=== PATIENT | male | born 1985 | race Caucasian/White ===

== ENCOUNTER 2017-03-09 15:29 | Emergency (ER) ==
[2017-03-09 15:29] VITALS: BMI 32.5
[2017-03-09 15:34] VITALS: BP 141/91; TEMP 98.5
--- NOTE | 2017-03-09 15:54 | ED.PDOC ---
General ED Provider: Dr. JENNIFER BAUMAN Chief Complaint: Tooth Problem Stated Complaint: Hurting on the left upper teeth, some swelling in the gum,. this is 5 th visit for the same reason Time Seen by Physician: 15:51 Mode of Arrival: Walk-In Information Source: Patient Nursing and Triage Documentation Reviewed and Agree: Yes EENT Complaint Exam - Dental/Oral Complaint/Exam Mechanism of Injury: No known trauma Symptoms Are: Still present Timing: Constant Initial Severity: Moderate Current Severity: Moderate Character: Reports: Aching Aggravating: Reports: Cold, Chewing Alleviating: Reports: None Associated Signs and Symptoms: Reports: Swelling, Foul odor Related History: Reports: Similar episode Cardiac Risk Factors: Reports: None Dental/Oral Surgical History: Reports: None Tooth Findings: Present: Percussion tenderness, Gross decay, Gross caries Teeth Picture: 1 - caries, broken Differential Diagnoses: Dental Abcess, Dental Caries Review of Systems - Review Of Systems Constitutional: Reports: No symptoms Eyes: Reports: No symptoms Ears, Nose, Mouth, Throat: Reports: No symptoms Respiratory: Reports: No symptoms Cardiac: Reports: No symptoms GI: Reports: No symptoms : Reports: No symptoms Musculoskeletal: Reports: No symptoms Skin: Reports: No symptoms Neurological: Reports: No symptoms Endocrine: Reports: No symptoms Hematologic/Lymphatic: Reports: No symptoms All Other Systems: Reviewed and Negative Past Medical History - Past Medical History Previously Healthy: Yes Endocrine: Reports: None Cardiovascular: Reports: Hypertension Respiratory: Reports: None Hematological: Reports: None Gastrointestinal: Reports: GERD Genitourinary: Reports: None Neuro/Psych: Reports: Migraine, Anxiety, Depression Musculoskeletal: Reports: None Cancer: Reports: None - Surgical History General Surgical History: Reports: Unknown - Family History Family History: Reports: Unknown - Social History Smoking Status: Current every day smoker, Light tobacco smoker Smoking Cessation Counseling Time: > 3 min - 10 min Hx Substance Use: No Alcohol Screening: Occasionally - Immunizations Tetanus Shot up to Date: Yes Physical Exam - Physical Exam Appearance: Well-appearing, No pain distress, Well-nourished Eyes: VALORIE, EOMI, Conjunctiva clear ENT: Ears normal, Nose normal, Oropharynx normal Respiratory: Airway patent, Breath sounds clear, Breath sounds equal, Respirations nonlabored Cardiovascular: RRR, Pulses normal, No rub, No murmur GI/: Soft, Nontender, No masses, Bowel sounds normal, No Organomegaly Musculoskeletal: Normal strength, ROM intact, No edema, No calf tenderness Skin: Warm, Dry, Normal color Neurological: Sensation intact, Motor intact, Reflexes intact, Cranial nerves intact, Alert, Oriented Psychiatric: Affect appropriate, Mood appropriate Critical Care Note - Critical Care Note Total Time (mins): 0 Course - Course Orders, Labs, Meds: Orders Category Date Time Status Ketorolac Tromethamine [Toradol] MEDS 03/09/17 15:51 Stat 60 mg IM ONCE STA Vital Signs: Temp Pulse Resp BP Pulse Ox 03/09/17 15:29 98.5 F 77 20 141/91 H 98 Departure - Departure Time of Disposition: 15:56 Disposition: HOME SELF-CARE Discharge Problem: Toothache Instructions: Dental Abscess (ED) Condition: Stable Pt referred to PMD for follow-up: Yes (dentist) Additional Instructions: Needs f/u with dentist Tylenol prn F/u at [facility] Prescriptions: Amoxicillin/Potassium Clav [Augmentin 500-125 mg Tab] 1 tab PO Q12HR #20 tablet Hydrocodone/Acetaminophen [[place] 5-325 Tablet] 1 tab PO TID PRN #6 tablet PRN Reason: PAIN Allergies/Adverse Reactions: Allergies tramadol Adverse Reaction (Verified 03/09/17 15:36) BREAK OUT Home Medications: Ambulatory Orders Amoxicillin/Potassium Clav [Augmentin 500-125 mg Tab] 1 tab PO Q12HR #20 tablet 03/09/17 Hydrocodone/Acetaminophen [[place] 5-325 Tablet] 1 tab PO TID PRN #6 tablet Disposition Discussed With: Patient
[2017-03-09] MEDS: TORADOL IM STA (15:57)
== END 2017-03-09 16:16 | disposition home or self-care (01) ==
LOC: ED 15:29
DX: K02.9 Dental caries, unspecified (principal); F17.200 Nicotine dependence, unspecified, uncomplicated
CPT/HCPCS: 96372; 99282

== ENCOUNTER 2019-03-10 06:48 | Emergency (ER) | payer OTHER ==
[2019-03-10 06:55] VITALS: BP 142/94; TEMP 98.5; BMI 33.0
--- NOTE | 2019-03-10 07:13 | ED.PDOC ---
General ED Provider: Dr. NAOMIE ADKINS Chief Complaint: Sore Throat Stated Complaint: Severe sore throat. Onset 1 week. Feels painful-like swallowing glass/sharp blade. Time Seen by Physician: 07:08 Mode of Arrival: Walk-In Information Source: Patient Exam Limitations: No limitations Nursing and Triage Documentation Reviewed and Agree: Yes Does patient meet sepsis criteria?: No System Inflammatory Response Syndrome: Not Applicable Sepsis Protocol: For patient's 13 years and over: Temp is 96.8 and below OR 101 and greater Pulse >90 BPM Resp >20/minute Acutely Altered Mental Status Are patient's symptoms suggestive of a new infection, such as: -Pneumonia -Skin, Soft Tissue -Endocarditis -UTI -Bone, Joint Infection -Implantable Device -Acute Abdominal Infection -Wound Infection -Meningitis -Blood Stream Catheter Infection -Unknown EENT Complaint Exam - Throat Complaint/Exam Onset/Duration: 5 days Symptoms Are: Still present Timimg: Constant Initial Severity: Moderate Current Severity: Moderate Aggravating: Reports: Eating (and swallowing) Alleviating: Reports: None Associated Signs and Symptoms: Denies: Fever, Dysphagia, Drooling, Foreign body sensation, Chills, Cough, Wheezing, Hoarseness, Sinus discomfort, Nasal congestion, Difficulty breathing, Lethargy, Irritability, Decreased activity, Vomiting, Diarrhea, Decreased hearing, Ear drainage Related History: Denies: Similar Episode Uvula Midline: Yes Estephania-tonsillar Fluctuence: No Scarlatinaform Rash Present: No Lesions: Absent: Buccal Mucosa, Pharynx Exanthem: Absent: Buccal Mucosa, Pharynx Vesicles: Absent: Buccal Mucosa, Pharynx Stridor Present: No Sinus Tenderness Present: No Tonsillar Hypertrophy Present: No Tonsillar Exudate Present: No Estephania-tonsillar Swelling Present: No Adenopathy Present: Yes Splenomegaly Present: No Differential Diagnoses: Pharyngitis Review of Systems - Review Of Systems Constitutional: Reports: No symptoms Eyes: Reports: No symptoms Ears, Nose, Mouth, Throat: Reports: No symptoms Respiratory: Reports: No symptoms Cardiac: Reports: No symptoms GI: Reports: No symptoms : Reports: No symptoms Musculoskeletal: Reports: No symptoms Skin: Reports: No symptoms Neurological: Reports: No symptoms Endocrine: Reports: No symptoms Hematologic/Lymphatic: Reports: No symptoms All Other Systems: Reviewed and Negative Past Medical History - Past Medical History Previously Healthy: Yes Endocrine: Reports: None Cardiovascular: Reports: Hypertension Respiratory: Reports: None Hematological: Reports: None Gastrointestinal: Reports: GERD Genitourinary: Reports: None Neuro/Psych: Reports: Migraine, Anxiety, Depression Musculoskeletal: Reports: None Cancer: Reports: None - Surgical History General Surgical History: Reports: Unknown - Family History Family History: Reports: Unknown - Social History Smoking Status: Current every day smoker, Light tobacco smoker Hx Substance Use: No Alcohol Screening: None - Immunizations Tetanus Shot up to Date: Yes Physical Exam - Physical Exam Appearance: Well-appearing Ill-appearing: Mild Pain Distress: Mild Eyes: VALORIE, EOMI, Conjunctiva clear ENT: Erythema Neck: Supple Respiratory: Airway patent, Breath sounds clear, Breath sounds equal, Respirations nonlabored Cardiovascular: RRR, Pulses normal, No rub, No murmur GI/: Soft, Nontender, No masses, Bowel sounds normal, No Organomegaly Musculoskeletal: Normal strength, ROM intact, No edema, No calf tenderness Skin: Warm, Dry, Normal color Neurological: Sensation intact, Motor intact, Reflexes intact, Cranial nerves intact, Alert, Oriented Psychiatric: Affect appropriate, Mood appropriate Critical Care Note - Critical Care Note Total Time (mins): 0 Course - Course Vital Signs: Temp Pulse Resp BP Pulse Ox 03/10/19 06:48 98.5 F 100 H 18 142/94 H 97 Departure - Departure Time of Disposition: 07:32 Disposition: HOME SELF-CARE Discharge Problem: Acute pharyngitis Instructions: Pharyngitis (ED) Condition: Good Pt referred to PMD for follow-up: Yes IPMP verified?: No Additional Instructions: RINSE MOUTH WITH WARM SALT WATER SEVERAL TIMES A DAY TAKE ANTIBIOTIC DIRECTED AND MONITOR FOR POSSIBLE ADVERSE EFFECTS SEEK APPOINTMENT WITH PCP FOR FOLLOW UP APT IN 5-7 DAYS RETURN TO ER IF WORSENS TAKE ANALGESICS NEEDED(TYLENOL OR IBUPROFEN) Allergies/Adverse Reactions: Allergies tramadol Adverse Reaction (Verified 03/10/19 06:55) BREAK OUT Home Medications: Ambulatory Orders Azithromycin [Zithromax] 250 mg PO DAILY #6 tablet 03/10/19 Disposition Discussed With: Patient
== END 2019-03-10 07:44 | disposition home or self-care (01) ==
LOC: ED 06:48
DX: J02.9 Acute pharyngitis, unspecified (principal); F17.210 Nicotine dependence, cigarettes, uncomplicated
CPT/HCPCS: 87651; 99282

== ENCOUNTER 2024-11-28 19:15 | Observation (INO) ==
--- NOTE | 2024-11-28 19:34 | ED.PDOC ---
General ED Provider: Dr. MADDI ROJAS MD Chief Complaint: Shortness of Air Stated Complaint: Patient is a 39-year-old male with past medical history of asthma, COPD, obesity who presents with complaint of shortness of breath. The patient states that he has been having flulike symptoms for a week and a half, was seen in the ER couple of days ago and was sent home with symptomatic management after being diagnosed with flu. Patient started feeling worse, saw his PCP yesterday and was treated with steroids, and was told to go to the ER if symptoms worsen. Patient states that since yesterday evening he cannot stand and breathe together and it has been progressively getting worse. Patient denies any fevers, runny nose, sore throat. Has chest pain with coughing. Denies any chills, palpitations, nausea, vomiting or abdominal pain. Patient has diarrhea and it is watery. Patient denies any urinary symptoms. Patient is a smoker and has not been smoking for the past week and a half since he started having the symptoms. Time Seen by Provider: 11/28/24 19:31 Mode of Arrival: Walk-In Information Source: Patient Exam Limitations: No limitations Primary Care Provider: KAITLIN LAMBERT Nursing and Triage Documentation Reviewed and Agree: Yes What is Opioid Naive?: *Opioid Naive implies the patient is not already taking opioids or not chronically receiving opioids on a daily basis. *PRN dosing is not "usually" associated with tolerance. *Patients are at higher risk of over-sedation and aspiration. What is Opioid Tolerant?: *Opioid Tolerance implies less than the expected response to an opioid. *Acquired tolerance is defined by the patient taking 60mg of oral morphine daily (or equianalgesic dose of another opioid) for 1 week or more. *Often associated with chronic pain. *May take more than usual dose to achieve desired pain control. Review of Systems Review Of Systems Constitutional: Denies Chills or Fever Eyes: Reports No symptoms Ears, Nose, Mouth, Throat: Reports No symptoms Respiratory: Reports Cough, Shortness of Breath and Wheezing Cardiac: Reports Chest pain (with coughing) GI: Reports No symptoms : Reports No symptoms Musculoskeletal: Reports No symptoms Skin: Reports No symptoms Neurological: Reports No symptoms Endocrine: Reports No symptoms Hematologic/Lymphatic: Reports No symptoms All Other Systems: Reviewed and Negative [facility] Medical History Hypertension I10 - Essential (primary) hypertension (ICD-10) Panic attacks F41.0 - Panic disorder [episodic paroxysmal anxiety] (ICD-10) ADHD (attention deficit hyperactivity disorder) F90.9 - Attention-deficit hyperactivity disorder, unspecified type (ICD-10) Family History Mother Cancer Ovarian FATHER Cancer Colon Social History (Updated 11/29/24 @ 02:04 by CARLOS MANUEL OSULLIVAN RN) Smoking and tobacco status: Current every day smoker Tobacco type: cigarettes Alcohol intake: unknown Substance use type: does not use Agree to transfusion: Yes Adopted: No Caregiver/support person: No Foster care: No Household members: spouse and children Housing: house Marital status: M Lives independently: Yes Daycare: no daycare Number of children: 1 Highest education level completed: 11th grade Financial difficulty paying for basics: not very hard service: No retirement: No Current occupational status: employed Seatbelt use: always Current diet type/program: regular Physical Exam Physical Exam Appearance: Reports Ill-appearing Ill-appearing: Mild Pain Distress: Mild Respiratory: Reports Breath sounds diminished, Wheezes and Other Cardiovascular: Reports RRR, Pulses normal and No murmur GI/: Reports Soft and Nontender Musculoskeletal: Reports Normal strength and No edema Skin: Reports Warm and Normal color Neurological: Reports Motor intact, Alert and Oriented Psychiatric: Reports Affect appropriate Interpretation EKG Interpretation EKG Interpretation By: ED Physician Time of EKG #1: 19:59 Rate: Tachy Rhythm: Sinus Ectopy: None ST Segment: Other (Nonspecific ST-T changes in the inferior leads. Q waves in inferior leads.) Interpretation: Sinus tachycardia, heart rate of 101 bpm. Normal intervals. No STEMI. Radiology Interpretation Radiology Interpretation By: Radiologist (Looked at the right films, suggestive of pneumonia. Radiology read pending) Radiology Results: Positive Exam Interpreted: CXR ( Shortness of breath. COMPARISON: Chest radiograph 03/02/2024. FINDINGS: Normal heart size. Ground-glass opacities in the lower lungs bilaterally. No visible pleural effusion or pneumothorax. No acute osseous abnormality. IMPRESSION: Bibasilar opacities concerning for pneumonia or) Re-Evaluation Re-Evaluation Time of Re-Evaluation: 23:00 Status: Improved (Mild improvement. Patient was administered IV steroids, antibiotics and Pulmicort.) Vital Signs Stable: Yes Re-Evaluation Time of Re-Evaluation: 00:01 Status: Improved (Patient sleeping, saturations are 96% on 2 L, heart rate is 94, respiratory rate is 21. Patient is sleeping. Will admit to the hospitalist.) Vital Signs Stable: Yes Critical Care Note Critical Care Note Total Critical Care Time (mins): 40 Course Course 11/29/24 05:25 11/29/24 05:25 Orders, Labs, Meds: Lab Review 11/28/24 11/28/24 11/28/24 19:59 20:13 21:30 WBC 13.04 H RBC 4.77 Hgb 14.2 Hct 41.8 L MCV 87.6 MCH 29.8 MCHC 34.0 RDW Coeff of Portia 12.9 Plt Count 210 Immature Gran % (Auto) 0.6 Neut % (Auto) 73.0 Lymph % (Auto) 16.9 Castro % (Auto) 8.7 Eos % (Auto) 0.6 Baso % (Auto) 0.2 Neut # (Auto) 9.5 H Lymph # (Auto) 2.2 Castro # (Auto) 1.1 Eos # (Auto) 0.1 Baso # (Auto) 0.0 Immature Gran # (Auto) 0.1 Puncture Site Lb Base Excess 3.3 H O2 Saturation 94.0 ABG pH 7.50 H ABG pCO2 34.0 L ABG pO2 64.0 L ABG HCO3 26.5 ABG Total CO2 27.5 H Anshu Test + Hemoglobin 0.7 Oxyhemoglobin 92.3 L Carboxyhemoglobin 2.2 H Total Hemoglobin 16.1 O2 Delivery Device Cannula Oxygen Liter Flow 2.00 FiO2 % 28.0 Sodium 139.8 Potassium 3.32 L Chloride 105.3 Carbon Dioxide 24.5 Anion Gap 13.32 BUN 14.9 Creatinine 0.79 Estimated GFR (MDRD) 109.00 BUN/Creatinine Ratio 18.86 Glucose 121.0 H Lactic Acid 1.21 Calcium 8.77 Total Bilirubin 0.69 AST 40.3 ALT 35.4 Alkaline Phosphatase 124.3 Troponin I < 0.012 NT-Pro-B Natriuret Pep < 20 Total Protein 7.63 Albumin 3.73 Globulin 3.90 Albumin/Globulin Ratio 0.95 D-Dimer 599.46 H SARS CoV-2 RNA Rapid BROOK Negative Orders Category Date Time Status ADMIT PATIENT INPATIENT .TO [facility] (MONITORED BED) ADMISSION 11/29/24 00:28 Active ABG DRAW REQUEST Stat CARDIO 11/28/24 19:32 Completed EKG-(ED ONLY) Stat CARDIO 11/28/24 19:32 Completed NEBULIZER TREATMENT Routine CARDIO 11/29/24 00:29 Active NEBULIZER TREATMENT Stat CARDIO 11/28/24 21:22 Completed NPO REMINDER: IMAGING ONCE CARE 11/28/24 21:22 Completed TELEMETRY MONITORING TELE CARE 11/29/24 00:28 Active ABG COOX Stat LAB 11/28/24 20:13 Completed BLOOD CULTURE Stat LAB 11/28/24 21:38 Received CBC W/ AUTO DIFF Q3D LAB 11/30/24 06:00 Ordered CBC W/ AUTO DIFF Stat LAB 11/28/24 19:59 Completed CBC W/ AUTO DIFF Stat LAB 11/29/24 05:25 Completed CMP [COMPREHENSIVE METABOLIC PANEL] Q3D LAB 11/30/24 06:00 Ordered CMP [COMPREHENSIVE METABOLIC PANEL] Stat LAB 11/28/24 19:59 Completed CMP [COMPREHENSIVE METABOLIC PANEL] Stat LAB 11/29/24 05:25 Completed COVID [SARS COV-2 RNA RAPID BROOK] Stat LAB 11/28/24 21:30 Completed D-DIMER Stat LAB 11/28/24 19:59 Completed LACTIC ACID Stat LAB 11/28/24 19:59 Completed MANUAL DIFFERENTIAL Stat LAB 11/29/24 05:25 Completed PROBNP ED [NT-PROBNP(ED)] Stat LAB 11/28/24 19:59 Completed TROPONIN I Stat LAB 11/28/24 19:59 Completed Azithromycin Inj [Zithromax] 500 mg Meds 11/28/24 21:20 Discontinued 0.9 % Sodium Chloride [Sodium Chloride] 250 ml IV ONCE Budesonide [Pulmicort 0.5 mg/2 ml] Meds 11/28/24 21:20 Discontinued 0.5 mg NEB ONCE STA Ceftriaxone/D5w 1 gm Premix [Rocephin 1 gm/50 ml D5w] Meds 11/28/24 21:20 Discontinued 1 gm in 50 ml IV ONCE Iohexol [Omnipaque 350 mg/ml 100Ml] Meds 11/28/24 21:48 Discontinued 100 ml IVP ONCE ONE Ipratropium/Albuterol Neb [Duoneb] Meds 11/29/24 02:00 Active 3 ml NEB RTQ4H Ipratropium/Albuterol Neb [Duoneb] Meds 11/28/24 19:32 Discontinued 6 ml NEB ONCE STA Methylprednisolone Sod Succ/Pf [Solu-Medrol 125 mg] Meds 11/28/24 21:41 Discontinued 125 mg .ROUTE .STK-MED ONE Methylprednisolone Sod Succ/Pf [Solu-Medrol 125 mg] 125 Meds 11/28/24 21:35 Discontinued mg 0.9 % Sodium Chloride [Sodium Chloride] 50 ml IV ONCE CHEST, 1V AP ONLY Stat RADS 11/28/24 19:32 Completed CTA CHEST PE PROTOCOL Stat RADS 11/28/24 21:20 Completed Medications Generic Name Dose Route Start Last Admin Trade Name Freq PRN Reason Stop Dose Admin Albuterol/Ipratropium 3 ml 11/29/24 02:00 11/29/24 05:05 Ipratropium/Albuterol Vial.Neb NEB 3 ml RTQ4H CIRO Administration Sodium Chloride 1 syr 11/29/24 13:00 0.9% Sodium Chloride 10 Ml Disp.Syrin IVF Q8HR CIRO Sodium Chloride 1 syr 11/29/24 05:38 11/29/24 05:48 0.9% Sodium Chloride 10 Ml Disp.Syrin IVF 1 syr PRN PRN Administration FLUSHING Discontinued Medications Generic Name Dose Route Start Last Admin Trade Name Freq PRN Reason Stop Dose Admin Albuterol/Ipratropium 6 ml 11/28/24 19:32 11/28/24 20:29 Ipratropium/Albuterol Vial.Neb NEB 11/28/24 19:33 6 ml ONCE STA Administration Budesonide 0.5 mg 11/28/24 21:20 11/28/24 21:37 Budesonide 0.5 Mg/2 Ml Vial.Neb NEB 11/28/24 21:21 0.5 mg ONCE STA Administration CEFTRIAXONE/D5W 1 GM PREMIX 1 gm in 50 mls @ 100 mls/hr 11/28/24 21:20 11/28/24 21:58 Rocephin 1 Gm/50 Ml D5w IV 11/28/24 21:49 100 mls/hr ONCE ONE Administration Azithromycin 500 mg/ Sodium 250 mls @ 250 mls/hr 11/28/24 21:20 11/28/24 23:04 Chloride IV 11/28/24 22:19 250 mls/hr ONCE ONE Administration Methylprednisolone Sodium 52 mls @ 100 mls/hr 11/28/24 21:35 11/28/24 22:34 Succinate 125 mg/ Sodium IV 11/28/24 22:07 100 mls/hr Chloride ONCE ONE Administration Iohexol 100 ml 11/28/24 21:48 11/28/24 21:48 Iohexol 350 Mg/Ml 100ml IVP 11/28/24 21:49 100 ml ONCE ONE Administration Vital Signs: Temp Pulse Resp BP Pulse Ox O2 Flow Rate 11/28/24 19:47 2 11/28/24 19:22 97.8 F 100 28 H 162/81 H 93 L Differential diagnosis include but not limited to flu, COVID, RSV, COPD exacerbation, CHF exacerbation, asthma exacerbation, pneumonia, pneumothorax, pleurisy. ER course: Patient is a 39-year-old male who presented with cough, shortness of breath going on for a week and a half and progressively worse over the past 36 hours. On examination patient was tachypneic and had diffuse wheezing and diminished breath sounds. Patient was given DuoNebs x 2, Pulmicort, Solu-Medrol with mild improvement of symptoms. Patient's D-dimer was elevated and CTA for PE was done which was of poor quality as patient could not hold his breath for the scan. Patient was started on ceftriaxone and azithromycin. Will admit the patient to Dr. Nikko Schroeder, discussed with Jose J Taylor NP for the hospitalist. Will put the admission orders in. Discharge Plan Discharge Patient Disposition: ADMITTED INPATIENT Discharge Problem: Hypoxemia Pneumonia Qualifiers: Pneumonia type: due to influenza A virus Qualified Code(s): J10.00 - Influenza due to other identified influenza virus with unspecified type of pneumonia Dyspnea Qualifiers: Dyspnea type: shortness of breath Qualified Code(s): R06.02 - Shortness of breath Did you review [place] [employer]APH[employer]OR for ALL controlled substances?: Not Applicable ED Provider: MADDI ROJAS Condition: Stable
[2024-11-28 20:05] LABS: BASOPHILS % (AUTO) 0.2 % (0.0-3.0); EOSINOPHILS # (AUTO) 0.1 K/ul (0.0-0.7); EOSINOPHILS % (AUTO) 0.6 % (0.0-7.0); HEMATOCRIT 41.8 % (42.0-52.0); HEMOGLOBIN 14.2 g/dl (14.0-18.0); IMMATURE GRANULOCYTE # (AUTO) 0.1 (0.0-1.0); IMMATURE GRANULOCYTE % (AUTO) 0.6 % (0.0-5.0); LYMPHOCYTES # (AUTO) 2.2 K/uL (0.60-3.4); LYMPHOCYTES % (AUTO) 16.9 (10.0-50.0); MEAN CORPUSCULAR HEMOGLOBIN 29.8 pg (27.0-31.0); MEAN CORPUSCULAR VOLUME 87.6 fl (80.0-94.0); MONOCYTES # (AUTO) 1.1 K/uL (0.4-2.0); MONOCYTES % (AUTO) 8.7 (0-10); NEUTROPHILS # (AUTO) 9.5 K/ul (2.0-6.9); PLATELET COUNT 210 10^3/uL (140-440); RDW COEFFICIENT OF VARIATION 12.9 % (11.6-14.8); RED BLOOD COUNT 4.77 10^6/ul (4.70-6.10); WHITE BLOOD COUNT 13.04 K/ul (4.2-10.2)
[2024-11-28 20:17] LABS: ABG O2 HGB 92.3 % (95-100); BEecf 3.3 (-2.0-3.0); COHb 2.2 (0.5-1.5); HCO3 26.5 (21-28); MetHb 0.7 (0-1.5); TCO2 27.5 (19-24); tHb 16.1 g/dl (11.7-17.4)
[2024-11-28 20:26] LABS: ALANINE AMINOTRANSFERASE 35.4 U/L (0-50); ALBUMIN 3.73 g/dL (3.5-5.0); ALKALINE PHOSPHATASE 124.3 U/L (38-126); ASPARTATE AMINO TRANSFERASE 40.3 U/L (17-59); BILIRUBIN,TOTAL 0.69 mg/dL (0.2-1.3); BLOOD UREA NITROGEN 14.9 mg/dL (9-20); CALCIUM 8.77 mg/dL (8.4-10.2); CARBON DIOXIDE 24.5 mmol/L (22-30.0); CHLORIDE 105.3 mmol/L (98-107); CREATININE 0.79 mg/dL (0.60-1.10); POTASSIUM 3.32 mmol/L (3.5-5.1); SODIUM 139.8 mmol/L (134.5-145); TOTAL PROTEIN 7.63 g/dL (6.3-8.2)
[2024-11-28] MEDS: DUONEB NEB STA (20:29)
[2024-11-28 20:40] LABS: TROPONIN I < 0.012 ng/ml (0.0000-0.120)
--- NOTE | 2024-11-28 21:05 | DI ---
EXAM: FRONTAL VIEW OF THE CHEST. HISTORY: Shortness of breath. COMPARISON: Chest radiograph 03/02/2024. FINDINGS: Normal heart size. Ground-glass opacities in the lower lungs bilaterally. No visible pleural effusion or pneumothorax. No acute osseous abnormality. IMPRESSION: Bibasilar opacities concerning for pneumonia or pneumonitis.
[2024-11-28] MEDS: PULMICORT 0.5 MG/2 ML NEB STA (21:37)
[2024-11-28] MEDS: OMNIPAQUE 350 MG/ML 100ML IVP ONE (21:48)
[2024-11-28] MEDS: ROCEPHIN 1 GM/50 ML D5W 1 GM/50 ML BAG IV ONE (21:58)
[2024-11-28 22:12] LABS: SARS COV-2 RNA RAPID NAAT NEGATIVE (NEGATIVE)
--- NOTE | 2024-11-28 22:25 | CT ---
EXAM: CHEST CTA WITH CONTRAST (PULMONARY ARTERY) HISTORY: Chest pain and shortness of breath. TECHNIQUE: CTA acquisition of the chest from the thoracic inlet to the upper abdomen following IV con trast administration timed to filling of the pulmonary artery. 3D/MIP/VR images were utilized. CT Dose Reduction Techniques Employed: Yes. IV Contrast: Administered. COMPARISON: None. FINDINGS: Evaluation is limited by motion. Pulmonary Embolism: Diagnostic quality: Suboptimal. Central (Main/Lobar/Interlobar): No embolus. Peripheral (Segmental/Subsegmental): Evaluation of the subsegmental vessels is limited due to the ti magdy of the contrast bolus and motion artifact. Right ventricle/Left ventricle ratio: Normal. Lines, Tubes, Devices: None. Lung Parenchyma and Airways: Central airways are patent without endobronchial lesion. Limited evalua tion of the lung markings due to motion artifact. No suspicious pulmonary nodule. Pleural Space: No pleural effusion or thickening. No pneumothorax. Mediastinum and [place]: Thyroid gland is normal. No lymphadenopathy. Sub centimeter mediastinal nodes. Heart and Pericardium: There is no pericardial effusion or thickening. The heart is not enlarged. Vessels: The thoracic aorta is of normal caliber. Bones: There is no fracture or lytic lesion. Soft Tissues: Chest wall soft tissues are unremarkable. Upper Abdomen: The visualized portions of the upper abdomen are normal. IMPRESSION: 1. The examination is limited. No central pulmonary emboli. Limited evaluation of the segmental an d subsegmental vessels. Repeat examination could be done if there is persistent clinical concern. 2. Limited evaluation of the lungs due to motion. All CT scans are performed using dose optimization techniques as appropriate to the performed exam an d include at least one of the following: Automated exposure control, adjustment of the mA and/or kV according t o size, and the use of iterative reconstruction technique.
[2024-11-28] MEDS: SOLU-MEDROL 125 MG 125 MG in SODIUM CHLORIDE 50 ML IV ONE (22:34)
[2024-11-28] MEDS: SOLU-MEDROL 125 MG ONE (22:56)
[2024-11-28] MEDS: ZITHROMAX 500 MG in SODIUM CHLORIDE 250 ML IV ONE (23:04)
[2024-11-29] MEDS: DUONEB NEB SCH (01:20)
[2024-11-29 02:35] VITALS: BMI 36.7
[2024-11-29 05:41] LABS: HEMATOCRIT 40.5 % (42.0-52.0); HEMOGLOBIN 13.8 g/dl (14.0-18.0); MEAN CORPUSCULAR HEMOGLOBIN 29.8 pg (27.0-31.0); MEAN CORPUSCULAR HGB CONC 34.1 (31.8-35.4); MEAN CORPUSCULAR VOLUME 87.5 fl (80.0-94.0); PLATELET COUNT 230 10^3/uL (140-440); RDW COEFFICIENT OF VARIATION 12.9 % (11.6-14.8); RED BLOOD COUNT 4.63 10^6/ul (4.70-6.10); WHITE BLOOD COUNT 12.91 K/ul (4.2-10.2)
[2024-11-29 05:56] LABS: ALANINE AMINOTRANSFERASE 36.4 U/L (0-50); ALBUMIN 3.85 g/dL (3.5-5.0); ALKALINE PHOSPHATASE 125.8 U/L (38-126); ASPARTATE AMINO TRANSFERASE 31.8 U/L (17-59); BILIRUBIN,TOTAL 0.6 mg/dL (0.2-1.3); BLOOD UREA NITROGEN 13.2 mg/dL (9-20); CARBON DIOXIDE 24.7 mmol/L (22-30.0); CHLORIDE 105.6 mmol/L (98-107); CREATININE 0.75 mg/dL (0.60-1.10); GLUCOSE 176.2 mg/dL (74-106); POTASSIUM 4.01 mmol/L (3.5-5.1); SODIUM 138.7 mmol/L (134.5-145); TOTAL PROTEIN 7.91 g/dL (6.3-8.2)
[2024-11-29 06:03] LABS: ANISOCYTOSIS NOT PRESENT (NOT PRESENT)
[2024-11-29] MEDS: ROCEPHIN 1 GM/50 ML D5W 1 GM/50 ML BAG IV SCH (11:33)
[2024-11-29] MEDS: ZITHROMAX 500 MG in SODIUM CHLORIDE 250 ML IV SCH (12:18)
[2024-11-29] MEDS: SOLU-MEDROL 40 MG IVP SCH (13:32)
--- NOTE | 2024-11-29 17:41 | PCM ---
Date of Service Date Seen by Provider: 11/29/24 Time Seen by Provider: 10:00 Admit Day/Time Admission Date: 11/29/24 Admission Time: 12:15 Reason for Admission Chief Complaint: SOB Hospital Provider Hospital Provider: SEAMUS REA, [facility] [place] Primary Care Physician Primary Care Physician: KAITLIN LAMBERT History of Present Illness History of Present Illness: 39 yo male presented to the ER with shortness of breath. Patient initially began with symptoms of fever, cough, and congestion on 11/22. Presented to the ER at this facility on 11/26 and diagnosed with flu A. He was not d/c with any me dications at that time. On arrival to ER, HR was >100 and RR were 28. Breathing treatments given and patient mildly improved. ABG obtained and showed PO2 of 64. O2 sat running 93% on RA. He was placed on 2L and breathing improved. Mild leukocytosis present on labs. D-dimer elevated. CTA completed and study was poor due to patient being unable to lay flat. Chest x-ray showed bilateral pneumonia vs pneumonitis. Given rocephin, azith, steroids in ER. Admitted to med/surg Observation Case Discussed With Case Discussed With: Patient's case was discussed with the ER Physicians, Dr. Gutiérrez. [facility] Medical History Hypertension I10 - Essential (primary) hypertension (ICD-10) Panic attacks F41.0 - Panic disorder [episodic paroxysmal anxiety] (ICD-10) ADHD (attention deficit hyperactivity disorder) F90.9 - Attention-deficit hyperactivity disorder, unspecified type (ICD-10) Family History Mother Cancer Ovarian FATHER Cancer Colon Social History Smoking and tobacco status: Current every day smoker Tobacco type: cigarettes Alcohol intake: unknown Substance use type: does not use Agree to transfusion: Yes Adopted: No Caregiver/support person: No Foster care: No Household members: spouse and children Housing: house Marital status: M Lives independently: Yes Daycare: no daycare Number of children: 1 Highest education level completed: 11th grade Financial difficulty paying for basics: not very hard service: No shelter: No Current occupational status: employed Seatbelt use: always Current diet type/program: regular Allergies Allergies Allergy/AdvReac Type Severity Reaction Status Date / Time tramadol AdvReac BREAK OUT Verified 11/28/24 19:21 Current Medications Home Medications Albuterol/Ipratropium (Ipratropium/Albuterol Vial.Neb) 3 ml NEB RTQ4H CIRO Last Admin: 11/29/24 17:34 Dose: 3 ml CEFTRIAXONE/D5W 1 GM PREMIX (Rocephin 1 Gm/50 Ml D5w) 1 gm in 50 mls @ 100 mls/hr IV DAILY CIRO Stop: 12/02/24 09:29 Last Admin: 11/29/24 11:33 Dose: 100 mls/hr Azithromycin 500 mg/ Sodium (Chloride) 250 mls @ 250 mls/hr IV DAILY CIRO Stop: 11/30/24 10:00 Last Admin: 11/29/24 12:18 Dose: 250 mls/hr Methylprednisolone Sodium Succinate (Methylprednisolone Sod Succ/Pf 40 Mg/Ml Vial) 40 mg IVP Q8HR CIRO Last Admin: 11/29/24 13:32 Dose: 40 mg Sodium Chloride (0.9% Sodium Chloride 10 Ml Disp.Syrin) 1 syr IVF Q8HR CIRO Last Admin: 11/29/24 13:35 Dose: 1 syr Sodium Chloride (0.9% Sodium Chloride 10 Ml Disp.Syrin) 1 syr IVF PRN PRN PRN Reason: FLUSHING Last Admin: 11/29/24 05:48 Dose: 1 syr albuterol sulfate 90 mcg/actuation breath activated powder inhaler,sensor 2 inh inhalation Q4-6H PRN shortness of breath or wheezing #1 ea 02/15/24 [Rx Confirmed 11/29/24] ipratropium 0.5 mg-albuterol 3 mg (2.5 mg base)/3 mL nebulization soln 3 ml inhalation Q4H PRN Difficulty breathing #90 mL 03/02/24 [Rx Confirmed 11/29/24] budesonide-formoterol HFA 80 mcg-4.5 mcg/actuation aerosol inhaler (Symbicort) 2 puff inhalation 2XD 11/26/24 [History Confirmed 11/29/24] ergocalciferol (vitamin D2) 1,250 mcg (50,000 unit) capsule 1,250 mcg PO WEEKLY 11/26/24 [History Confirmed 11/29/24] Opioid Naive vs. Tolerant Does Patient Take Opioids?: No Is Patient Opioid Naive?: Yes What is Opioid Naive?: *Opioid Naive implies the patient is not already taking opioids or not systems test technician nically receiving opioids on a daily basis. *PRN dosing is not "usually" associated with tolerance. *Patients are at higher risk of over-sedation and aspiration. Is Patient Opioid Tolerant?: No What is Opioid Tolerant?: *Opioid Tolerance implies less than the expected response to an opioid. *Acquired tolerance is defined by the patient taking 60mg of oral morphine daily (or equianalgesic dose of another opioid) for 1 week or more. *Often associated with chronic pain. *May take more than usual dose to achieve desired pain control. Review of Systems Constitutional: Reports Fever and Fatigue Eyes: Reports No symptoms Ears: Reports No symptoms Nose: Reports No symptoms Mouth: Reports No symptoms Throat: Reports No symptoms Cardiovascular: Reports No symptoms Respiratory: Reports Cough and Shortness of air Gastrointestinal: Reports No symptoms Genitourinary: Reports No Symptoms Musculoskeletal: Reports No symptoms Endocrine: Reports No symptoms Hematology: Reports No symptoms Immunology: Reports No symptoms Neurological: Reports No symptoms Psychiatric: Reports No symptoms Physical examination Most Recent Vital Signs: Most Recent Vital Signs Temperature 97.7 F 11/29/24 14:00 Temperature Source Temporal Artery Scan 11/29/24 14:00 Temperature Source Infrared 11/28/24 19:22 Pulse Rate 88 11/29/24 14:00 Respiratory Rate 16 11/29/24 14:00 Blood Pressure 147/83 H 11/29/24 14:00 Blood Pressure Mean 104 11/29/24 14:00 Blood Pressure Right Arm 160/86 11/29/24 01:45 Blood Pressure Location Right Arm 11/29/24 14:00 Blood Pressure Position Supine 11/29/24 01:45 O2 Sat by Pulse Oximetry 95 11/29/24 14:00 Oxygen Delivery Method Nasal Cannula 11/29/24 17:00 Oxygen Flow Rate 2 11/29/24 14:00 Height 6 ft 3 in 11/29/24 01:45 Weight 133.2 kg 11/29/24 01:45 Telemetry Type Remote Telemetry 11/29/24 13:00 Telemetry Monitoring Continues 11/29/24 13:00 Telemetry Heart Rate 86 11/29/24 13:00 EKG AL Interval 0.13 11/29/24 13:00 EKG QRS Interval 0.07 11/29/24 13:00 Telemetry Strip Reading NSR 11/29/24 13:00 Appearance: Positive No Apparent Distress, Alert and Oriented x3 and Ill- Appearing Skin: Positive Warm and Other (pale) HEENT: Positive Normocephalic and Atraumatic Neck: Positive Supple and Midline Trachea Chest/Lungs: Positive Symmetrical With Equal Breath Sounds, Rhonci and Wheezes (diminished breath sounds) Heart: Positive RRR and Pulses Normal GI/: Positive Soft, Nontender and Bowel Sounds Normal Musculoskeletal: Positive Not Examined Extremities: Positive Intact Peripheral Pulses, Stable Joints Without Laxity and Good ROM in All Joints Neurological: Positive Sensation Intact, Motor intact, Reflexes Intact, Alert, Oriented and Other (generalized weakness) Labs This Visit Labs This Visit: Labs This Visit 11/28/24 11/28/24 11/28/24 19:59 20:13 21:30 WBC 13.04 H RBC 4.77 Hgb 14.2 Hct 41.8 L MCV 87.6 MCH 29.8 MCHC 34.0 RDW Coeff of Portia 12.9 Plt Count 210 Immature Gran % (Auto) 0.6 Neut % (Auto) 73.0 Lymph % (Auto) 16.9 [place] % (Auto) 8.7 Eos % (Auto) 0.6 Baso % (Auto) 0.2 Neut # (Auto) 9.5 H Lymph # (Auto) 2.2 [place] # (Auto) 1.1 Eos # (Auto) 0.1 Baso # (Auto) 0.0 Immature Gran # (Auto) 0.1 Neutrophils % (Manual) Band Neutrophils % Lymphocytes % (Manual) Monocytes % (Manual) Reactive Lymphocytes Anisocytosis Puncture Site Lb Base Excess 3.3 H O2 Saturation 94.0 ABG pH 7.50 H ABG pCO2 34.0 L ABG pO2 64.0 L ABG HCO3 26.5 ABG Total CO2 27.5 H Anshu Test + Hemoglobin 0.7 Oxyhemoglobin 92.3 L Carboxyhemoglobin 2.2 H Total Hemoglobin 16.1 O2 Delivery Device Cannula Oxygen Liter Flow 2.00 FiO2 % 28.0 Sodium 139.8 Potassium 3.32 L Chloride 105.3 Carbon Dioxide 24.5 Anion Gap 13.32 BUN 14.9 Creatinine 0.79 Estimated GFR (MDRD) 109.00 BUN/Creatinine Ratio 18.86 Glucose 121.0 H Lactic Acid 1.21 Calcium 8.77 Total Bilirubin 0.69 AST 40.3 ALT 35.4 Alkaline Phosphatase 124.3 Troponin I < 0.012 NT-Pro-B Natriuret Pep < 20 Total Protein 7.63 Albumin 3.73 Globulin 3.90 Albumin/Globulin Ratio 0.95 D-Dimer 599.46 H SARS CoV-2 RNA Rapid BROOK Negative 11/29/24 05:25 WBC 12.91 H RBC 4.63 L Hgb 13.8 L Hct 40.5 L MCV 87.5 MCH 29.8 MCHC 34.1 RDW Coeff of Portia 12.9 Plt Count 230 Immature Gran % (Auto) Neut % (Auto) Lymph % (Auto) [place] % (Auto) Eos % (Auto) Baso % (Auto) Neut # (Auto) Lymph # (Auto) [place] # (Auto) Eos # (Auto) Baso # (Auto) Immature Gran # (Auto) Neutrophils % (Manual) 84.0 H Band Neutrophils % 4.0 Lymphocytes % (Manual) 6.0 L Monocytes % (Manual) 2.0 Reactive Lymphocytes 4.0 Anisocytosis Not present Puncture Site Base Excess O2 Saturation ABG pH ABG pCO2 ABG pO2 ABG HCO3 ABG Total CO2 Anshu Test Hemoglobin Oxyhemoglobin Carboxyhemoglobin Total Hemoglobin O2 Delivery Device Oxygen Liter Flow FiO2 % Sodium 138.7 Potassium 4.01 Chloride 105.6 Carbon Dioxide 24.7 Anion Gap 12.41 BUN 13.2 Creatinine 0.75 Estimated GFR (MDRD) 115.00 BUN/Creatinine Ratio 17.60 Glucose 176.2 H D Lactic Acid Calcium 9.00 Total Bilirubin 0.60 AST 31.8 ALT 36.4 Alkaline Phosphatase 125.8 Troponin I NT-Pro-B Natriuret Pep Total Protein 7.91 Albumin 3.85 Globulin 4.06 Albumin/Globulin Ratio 0.94 D-Dimer SARS CoV-2 RNA Rapid BROOK Imaging Imaging: EXAM: FRONTAL VIEW OF THE CHEST. FINDINGS: Normal heart size. Ground-glass opacities in the lower lungs bilaterally. No visible pleural effusion or pneumothorax. No acute osseous abnormality. IMPRESSION: Bibasilar opacities concerning for pneumonia or pneumonitis EXAM: CHEST CTA WITH CONTRAST (PULMONARY ARTERY) FINDINGS: Evaluation is limited by motion. Pulmonary Embolism: Diagnostic quality: Suboptimal. Central (Main/Lobar/Interlobar): No embolus. Peripheral (Segmental/Subsegmental): Evaluation of the subsegmental vessels is limited due to the timing of the contrast bolus and motion artifact. Right ventricle/Left ventricle ratio: Normal. Lines, Tubes, Devices: None. Lung Parenchyma and Airways: Central airways are patent without endobronchial lesion. Limited evaluation of the lung markings due to motion artifact. No suspicious pulmonary nodule. Pleural Space: No pleural effusion or thickening. No pneumothorax. Mediastinum and [place]: Thyroid gland is normal. No lymphadenopathy. Sub centimeter mediastinal nodes. Heart and Pericardium: There is no pericardial effusion or thickening. The heart is not enlarged. Vessels: The thoracic aorta is of normal caliber. Bones: There is no fracture or lytic lesion. Soft Tissues: Chest wall soft tissues are unremarkable. Upper Abdomen: The visualized portions of the upper abdomen are normal. IMPRESSION: 1. The examination is limited. No central pulmonary emboli. Limited evaluation of the segmental and subsegmental vessels. Repeat examination could be done if there is persistent clinical concern. 2. Limited evaluation of the lungs due to motion. Review Statement Review Statement: I have independently reviewed and interpreted the labs/EKGs/imaging that were ordered by the ER provider. I have reviewed all outside records that are available currently in our EMR including imaging/notes/labs from previous visits. Plan Plan: 1. Acute Hypoxic Respiratory Failure in setting of Influenza A and CAP - wean oxygen as tolerated, steroids, nebs 2. CAP - onset of symptoms 1 week ago, likely secondary to flu A, mild leukocytosis, cover with rocephin and azith, steroids, nebs 3. Influenza A - out of window for tamiflu, conservative measures, isolation DVT Prophylaxis: Ambulation Time Spent: Greater than 80 minutes spent with patient, 50% of the time spent with this patient was devoted to counseling and coordination of care. Advanced [facility] Plannin minutes spent discussing advance care planning. Smoking Cessation: 3-10 minutes spent discussing smoking cessation. Disposition: Admit to: Med/Surg Observation Full Code Discussed Plan of Care with Dr. Agus Schroeder. Medications Medication Orders: Medications Ordered Category Date Time Status 0.9 % Sodium Chloride [Saline Flush] Meds 11/29/24 05:38 Active 1 syr IVF PRN PRN 0.9 % Sodium Chloride [Saline Flush] Meds 11/29/24 13:00 Active 1 syr IVF Q8HR Azithromycin Inj [Zithromax] 500 mg Meds 11/29/24 09:15 Active 0.9 % Sodium Chloride [Sodium Chloride] 250 ml IV DAILY Ceftriaxone/D5w 1 gm Premix [Rocephin 1 gm/50 ml D5w] Meds 11/29/24 09:30 Active 1 gm in 50 ml IV DAILY Ipratropium/Albuterol Neb [Duoneb] Meds 11/29/24 02:00 Active 3 ml NEB RTQ4H Methylprednisolone Sod Succ/Pf [Solu-Medrol 40 mg] Meds 11/29/24 13:00 Active 40 mg IVP Q8HR
[2024-11-29] MEDS ORDERED: ZOFRAN ODT PO PRN (19:58)
[2024-11-29] MEDS: TYLENOL PO PRN (20:28)
[2024-11-29] MEDS ORDERED: ZITHROMAX 500 MG in SODIUM CHLORIDE 250 ML IV SCH (21:00)
[2024-11-30 05:19] LABS: BASOPHILS % (AUTO) 0.2 % (0.0-3.0); EOSINOPHILS # (AUTO) 0.1 K/ul (0.0-0.7); EOSINOPHILS % (AUTO) 0.5 % (0.0-7.0); HEMATOCRIT 40.6 % (42.0-52.0); HEMOGLOBIN 13.6 g/dl (14.0-18.0); IMMATURE GRANULOCYTE # (AUTO) 0.3 (0.0-1.0); IMMATURE GRANULOCYTE % (AUTO) 1.6 % (0.0-5.0); LYMPHOCYTES % (AUTO) 11.2 (10.0-50.0); MEAN CORPUSCULAR HEMOGLOBIN 29.7 pg (27.0-31.0); MEAN CORPUSCULAR HGB CONC 33.5 (31.8-35.4); MEAN CORPUSCULAR VOLUME 88.6 fl (80.0-94.0); MONOCYTES # (AUTO) 0.8 K/uL (0.4-2.0); MONOCYTES % (AUTO) 4.6 (0-10); NEUTROPHILS # (AUTO) 14.4 K/ul (2.0-6.9); NEUTROPHILS % (AUTO) 81.9 % (42.2-75.2); PLATELET COUNT 298 10^3/uL (140-440); RDW COEFFICIENT OF VARIATION 12.8 % (11.6-14.8); RED BLOOD COUNT 4.58 10^6/ul (4.70-6.10); WHITE BLOOD COUNT 17.57 K/ul (4.2-10.2)
[2024-11-30 05:33] LABS: ALANINE AMINOTRANSFERASE 43.3 U/L (0-50); ALBUMIN 3.5 g/dL (3.5-5.0); ALKALINE PHOSPHATASE 111.4 U/L (38-126); ASPARTATE AMINO TRANSFERASE 55.5 U/L (17-59); BILIRUBIN,TOTAL 0.48 mg/dL (0.2-1.3); BLOOD UREA NITROGEN 21.5 mg/dL (9-20); CALCIUM 8.83 mg/dL (8.4-10.2); CARBON DIOXIDE 24.9 mmol/L (22-30.0); CHLORIDE 105.5 mmol/L (98-107); CREATININE 0.76 mg/dL (0.60-1.10); GLUCOSE 164.2 mg/dL (74-106); POTASSIUM 3.73 mmol/L (3.5-5.1); SODIUM 138.3 mmol/L (134.5-145); TOTAL PROTEIN 7.53 g/dL (6.3-8.2)
--- NOTE | 2024-11-30 12:39 | DCSUM ---
Admission Date Admission Date: 11/29/24 Discharge Date Discharge Date: 11/30/24 Admission Diagnosis Admission Diagnosis: 1. Acute Hypoxic Respiratory Failure in setting of Influenza A and CAP 2. CAP 3. Influenza A Discharge Diagnosis Discharge Diagnosis: 1. Acute Hypoxic Respiratory Failure in setting of Influenza A and CAP 2. CAP 3. Influenza A Hospital Provider Hospital Provider: KRISTINE DOMINIQUE PA-C, [facility] Primary Care Physician Primary Care Physician: KAITLIN LAMBERT Summary of History and Physical Summary of History and Physical: 39 yo male presented to the ER with shortness of breath. Patient initially began with symptoms of fever, cough, and congestion on 11/22. Presented to the ER at this facility on 11/26 and diagnosed with flu A. He was not d/c with any medications at that time. On arrival to ER, HR was >100 and RR were 28. Breathing treatments given and patient mildly improved. ABG obtained and showed PO2 of 64. O2 sat running 93% on RA. He was placed on 2L and breathing improved. Mild leukocytosis present on labs. D-dimer elevated. CTA completed and study was poor due to patient being unable to lay flat but no central PE noted. Chest x- ray showed bilateral pneumonia vs pneumonitis. Given rocephin, azith, steroids in ER. Admitted to med/surg Observation Hospital Course Subjective: Patient treated with antibiotics, steroids, and nebs. He continued to require 2- 3L. Pt states he needs to go home to help care for his autistic son. They only have one vehicle, which is here, and his is unable to care for their son alone for much longer especially without a vehicle. I recommended staying at least another day, as he is still somewhat wheezy and requiring oxygen. He again is politely adamant that he needs to leave today. He is also thankfully feeling much better today. He's been ambulatory and states his breathing is much improved. Red flags discussed on when to return. Discharged on antibiotics, steroids, and home O2. F/u with pcp to wean off outpatient. Pt agrees to plan of care. Pt states he has a rescue inhaler at home. Appearance: Pleasant, No Apparent Distress and Alert HEENT: MMM and Supple CVS: Other (RRR) Abdomen: Soft, Non-Tender and No Distention Respiratory: Other (+mild wheezing sobia, able to speak full sentences, nonlabored breathing ) Extremities: No Edema Vital Signs: Most Recent Vital Signs Temperature 97.4 F L 11/30/24 05:26 Temperature Source Temporal Artery Scan 11/30/24 05:26 Temperature Source Infrared 11/28/24 19:22 Pulse Rate 68 11/30/24 05:26 Respiratory Rate 19 11/30/24 05:26 Blood Pressure 140/87 11/30/24 05:26 Blood Pressure Mean 104 11/30/24 05:26 Blood Pressure Right Arm 160/86 11/29/24 01:45 Blood Pressure Location Left Arm 11/30/24 05:26 Blood Pressure Position Supine 11/30/24 05:26 O2 Sat by Pulse Oximetry 93 L 11/30/24 05:26 Oxygen Delivery Method Nasal Cannula 11/30/24 12:00 Oxygen Flow Rate 2 11/30/24 10:00 Height 6 ft 3 in 11/29/24 01:45 Weight 133.2 kg 11/29/24 01:45 Telemetry Type Remote Telemetry 11/30/24 07:00 Telemetry Monitoring Continues 11/30/24 07:00 Telemetry Heart Rate 51 L 11/30/24 07:00 EKG AL Interval 0.14 11/30/24 07:00 EKG QRS Interval 0.06 11/30/24 07:00 Telemetry Strip Reading SB 11/30/24 07:00 Imaging: EXAM: FRONTAL VIEW OF THE CHEST. HISTORY: Shortness of breath. COMPARISON: Chest radiograph 03/02/2024. FINDINGS: Normal heart size. Ground-glass opacities in the lower lungs bilaterally. No visible pleural effusion or pneumothorax. No acute osseous abnormality. IMPRESSION: Bibasilar opacities concerning for pneumonia or pneumonitis. EXAM: CHEST CTA WITH CONTRAST (PULMONARY ARTERY) HISTORY: Chest pain and shortness of breath. TECHNIQUE: CTA acquisition of the chest from the thoracic inlet to the upper abdomen following IV contrast administration timed to filling of the pulmonary artery. 3D/MIP/VR images were utilized. CT Dose Reduction Techniques Employed: Yes. IV Contrast: Administered. COMPARISON: None. FINDINGS: Evaluation is limited by motion. Pulmonary Embolism: Diagnostic quality: Suboptimal. Central (Main/Lobar/Interlobar): No embolus. Peripheral (Segmental/Subsegmental): Evaluation of the subsegmental vessels is limited due to the timing of the contrast bolus and motion artifact. Right ventricle/Left ventricle ratio: Normal. Lines, Tubes, Devices: None. Lung Parenchyma and Airways: Central airways are patent without endobronchial lesion. Limited evaluation of the lung markings due to motion artifact. No suspicious pulmonary nodule. Pleural Space: No pleural effusion or thickening. No pneumothorax. Mediastinum and [place]: Thyroid gland is normal. No lymphadenopathy. Sub centimeter mediastinal nodes. Heart and Pericardium: There is no pericardial effusion or thickening. The heart is not enlarged. Vessels: The thoracic aorta is of normal caliber. Bones: There is no fracture or lytic lesion. Soft Tissues: Chest wall soft tissues are unremarkable. Upper Abdomen: The visualized portions of the upper abdomen are normal. IMPRESSION: 1. The examination is limited. No central pulmonary emboli. Limited ev aluation of the segmental and subsegmental vessels. Repeat examination could be done if there is persistent clinical concern. 2. Limited evaluation of the lungs due to motion. Lab Results Last 24 Hours: 11/30/24 05:02 WBC 17.57 H RBC 4.58 L Hgb 13.6 L Hct 40.6 L MCV 88.6 MCH 29.7 MCHC 33.5 RDW Coeff of Portia 12.8 Plt Count 298 Immature Gran % (Auto) 1.6 Neut % (Auto) 81.9 H Lymph % (Auto) 11.2 [place] % (Auto) 4.6 Eos % (Auto) 0.5 Baso % (Auto) 0.2 Neut # (Auto) 14.4 H Lymph # (Auto) 2.0 [place] # (Auto) 0.8 Eos # (Auto) 0.1 Baso # (Auto) 0.0 Immature Gran # (Auto) 0.3 Sodium 138.3 Potassium 3.73 Chloride 105.5 Carbon Dioxide 24.9 Anion Gap 11.63 BUN 21.5 H Creatinine 0.76 Estimated GFR (MDRD) 114.00 BUN/Creatinine Ratio 28.28 Glucose 164.2 H Calcium 8.83 Total Bilirubin 0.48 AST 55.5 ALT 43.3 Alkaline Phosphatase 111.4 Total Protein 7.53 Albumin 3.50 Globulin 4.03 Albumin/Globulin Ratio 0.86 Discharge Instructions Discharge Planning: Discharge Planning > [address] Anastacio Schroeder. Discharge Medications: Medications at Discharge (Home Meds & RX) albuterol sulfate 90 mcg/actuation breath activated powder inhaler,sensor 2 inh inhalation Q4-6H PRN shortness of breath or wheezing #1 ea 02/15/24 ipratropium 0.5 mg-albuterol 3 mg (2.5 mg base)/3 mL nebulization soln 3 ml inhalation Q4H PRN Difficulty breathing #90 mL 03/02/24 budesonide-formoterol HFA 80 mcg-4.5 mcg/actuation aerosol inhaler (Symbicort) 2 puff inhalation 2XD 11/26/24 ergocalciferol (vitamin D2) 1,250 mcg (50,000 unit) capsule 1,250 mcg PO WEEKLY 11/26/24 amoxicillin 875 mg-potassium clavulanate 125 mg tablet 1 tab PO BID 2 days #4 tabs 11/30/24 azithromycin 250 mg tablet 250 mg PO DAILY 2 days #2 tabs 11/30/24 prednisone 20 mg tablet 20 mg PO BID 3 days #6 tabs 11/30/24 Discharge Plan Discharge Discharge Orders: Discharge Patient (ONCE); Ordered 11/30/24 Ordered By: KRISTINE DOMINIQUE Activity Restrictions/Additional Instructions: DISCHARGE TO HOME DX: INFLUENZA, COPD, PNEUMONIA FINISH ANTIBIOTICS AND STEROIDS RETURN WITH WORSENING SYMPTOMS F/U WITH PRIMARY CARE PHYSICIAN HOME O2 ORDERED, FOLLOW UP WITH PCP TO WEAN OFF Instructions: Using Oxygen at Home (DC), Droplet Precautions (GEN), Shortness of Breath (GEN) Care Plan Goals: Problem: Activity Intolerance Goal: Demonstrate increased activity intolerance Instructions: Determine cause of activity intolerance Change positions slowly Gradually increase activity Report intolerances to provider Problem: Impaired Respiratory Status Goal: Exhibit optimal respiratory function Instructions: Activities as tolerated Apply oxygen as ordered Elevate head of bed Notify MD of increased congestion Patient Disposition: HOME SELF-CARE Prescriptions: New amoxicillin-pot clavulanate 875-125 mg tablet 1 tab PO BID 2 Days Qty: 4 0RF Rx Instructions: START 12/01/24 azithromycin 250 mg tablet 250 mg PO DAILY 2 Days Qty: 2 0RF Rx Instructions: START ON 12/01/24 prednisone 20 mg tablet 20 mg PO BID 3 Days Qty: 6 0RF Rx Instructions: START 12/01/24 Continued ipratropium-albuterol 0.5 mg-3 mg(2.5 mg base)/3 mL solution for nebulization 3 ml inhalation Q4H PRN (Reason: Difficulty breathing) Qty: 90 0RF ergocalciferol (vitamin D2) 1,250 mcg (50,000 unit) capsule 1,250 mcg PO WEEKLY budesonide-formoterol [Symbicort] 80-4.5 mcg/actuation HFA aerosol inhaler 2 puff INHALATION 2XD albuterol sulfate 90 mcg/actuation aero powdr breath act w/sensor 2 inh inhalation Q4-6H PRN (Reason: shortness of breath or wheezing) Qty: 1 0RF Did you review [place] [employer] for ALL controlled substances?: Not Applicable Discussed opioids are addictive and Narcan is available by prescription or from pharmacy.: No Condition: Stable Referrals: KAITLIN LAMBERT [Primary Care Provider] - 12/02/24 10:45 am
[2024-11-30 14:10] VITALS: BP 140/80; PULSE 91; RESP 20; TEMP 98
== END 2024-11-30 15:20 | disposition home or self-care (01) ==
LOC: ED 19:15 → MEDSURG B 11-29 01:07 → INTOOBSV 11-29 01:07 → MEDSURG B 11-29 01:39
PROVIDERS: ADMIT Hospitalist; ATTEND Physician Assistant
DX: J44.0 Chronic obstructive pulmonary disease with (acute) lower respiratory infection; D72.829 Elevated white blood cell count, unspecified; J96.01 Acute respiratory failure with hypoxia; Z20.822 Contact with and (suspected) exposure to COVID-19; F17.210 Nicotine dependence, cigarettes, uncomplicated; J18.9 Pneumonia, unspecified organism; J11.1 Influenza due to unidentified influenza virus with other respiratory manifestations